=== PATIENT | female | born 1990 | race Caucasian/White ===

== ENCOUNTER 2018-11-14 19:45 | Inpatient (IN) | payer OTHER ==
[2018-11-14] MEDS ORDERED: Methylergonovine 0.2 MG/ML VIAL IM PRN (20:30)
[2018-11-14] MEDS ORDERED: Misoprostol 200 MCG TAB PR PRN (20:30)
[2018-11-14] MEDS ORDERED: Ibuprofen 800 MG TAB PO PRN (20:30)
[2018-11-14] MEDS ORDERED: Butorphanol Tartrate 1 MG/ML VIAL SLOW IVP PRN (20:30)
[2018-11-14] MEDS ORDERED: NS w/ Oxytocin 10 units 500 ML IV SCH ×2 (20:30)
[2018-11-14] MEDS ORDERED: Ondansetron PF 4 MG/2 ML Vial IVP PRN (20:30)
[2018-11-14] MEDS ORDERED: Lidocaine 1% (PF) 30 ML VIAL SC PRN (20:30)
[2018-11-14] MEDS ORDERED: Promethazine HCl 25 MG/ML VIAL IM PRN (20:30)
[2018-11-14] MEDS ORDERED: Zolpidem Tartrate 5 MG TAB PO PRN (20:30)
[2018-11-14] MEDS ORDERED: Diphenoxylate HCl/Atropine Tablet PO PRN ×2 (20:30)
[2018-11-14] MEDS ORDERED: HYDROcodone/Acetaminophen 5/325 mg Tablet PO PRN ×2 (20:30)
[2018-11-14] MEDS ORDERED: hydrALAZINE 20 MG/ML VIAL SLOW IVP PRN (20:30)
[2018-11-14] MEDS ORDERED: NS / Oxytocin 40 units/1000ml 1,000 ML IV PRN (20:30)
[2018-11-14] MEDS ORDERED: Carboprost 250 MCG/ML AMP IM PRN (20:30)
--- NOTE | 2018-11-14 20:34 | PDOC.LDHP ---
Labor and Delivery H&P Chief complaint: scheduled induction HPI: 28 y/o at 39 and 3/7 weeks for term induction of labor Current gestational age (weeks): 39 Due date: 11/18/18 Grav: 1 Para: 0 Current complications: none Abnormal US findings: No Current medications: pre- vitamins Previous surgical history: none Social history: none - Physical Exam Vital signs reviewed and normal: yes General: NAD, resting Heart: RRR Lungs: nonlabored breathing Abdomen: NTTP Extremeties: no edema FHT: category 1 - Assessment L&D Assessment: elective induction at term - Plan Plan: admit to L&D, cervical ripening
[2018-11-14 23:16] VITALS: BMI 27.3
[2018-11-14 23:22] LABS: Hemoglobin 12.4 g/dL (12.0-16.0); Mean Corpuscular HGB CONC 33.9 g/dL (32.0-36.0); Mean Corpuscular Hemoglobin 32.4 pg (27.0-31.0); Mean Corpuscular Volume 95.6 fL (78.0-98.0); Mean Platelet Volume 9.4 fL (7.4-10.4); Platelet Count 212 thou/uL (130-400); RBC Distribution Width 11.9 % (11.5-14.5); Red Blood Cell (RBC) Count 3.84 mill/uL (4.20-5.40); White Blood Cell (WBC) Count 13.4 thou/uL (4.8-10.8)
[2018-11-14] MEDS: Misoprostol 100 MCG TAB VAG SCH ×2 (23:37)
[2018-11-14] MEDS: Lactated Ringer's 1,000 ML IV SCH (23:38)
[2018-11-14 23:57] LABS: HBSAg Index 0.16 S/CO (0-0.99); Hep B Surf Ag Non-Reactive S/CO (NonReactive); Syphilis Antibody Nonreactive (Nonreactive); Syphilis Antibody Index 0.03 S/CO (<1.00 Non-Reactive)
[2018-11-15] MEDS: Misoprostol 100 MCG TAB VAG SCH ×5 (03:13→21:37)
[2018-11-15] MEDS: Lactated Ringer's 1,000 ML IV SCH ×3 (04:05→18:03)
== END 2018-11-15 22:28 | disposition home or self-care (01) | DRG 833 ==
LOC: L&D 21:53
PROVIDERS: ADMIT Obstetrics & Gynecology; ATTEND Obstetrics & Gynecology
DX: O62.1 Secondary uterine inertia (principal); Z3A.39 39 weeks gestation of pregnancy
CPT/HCPCS: 36415; 85027; 86780; 86850; 86900; 86901; 87340

== ENCOUNTER 2018-11-16 06:59 | Inpatient (IN) | payer OTHER ==
[2018-11-16 08:01] VITALS: BMI 27.3
[2018-11-16 08:26] LABS: Amnisure Test RUPTURE DETECTED (No Rupture)
[2018-11-16 08:27] LABS: Amnisure Internal Control QC ACCEPTABLE (ACCEPTABLE)
[2018-11-16] MEDS ORDERED: Butorphanol Tartrate 1 MG/ML VIAL SLOW IVP PRN (09:15)
[2018-11-16] MEDS ORDERED: Ondansetron PF 4 MG/2 ML Vial IVP PRN ×2 (09:15→13:25)
[2018-11-16 09:24] LABS: Hemoglobin 13.3 g/dL (12.0-16.0); Mean Corpuscular HGB CONC 34.7 g/dL (32.0-36.0); Mean Corpuscular Hemoglobin 32.8 pg (27.0-31.0); Mean Corpuscular Volume 94.3 fL (78.0-98.0); Platelet Count 179 thou/uL (130-400); RBC Distribution Width 11.8 % (11.5-14.5); Red Blood Cell (RBC) Count 4.07 mill/uL (4.20-5.40); White Blood Cell (WBC) Count 13.2 thou/uL (4.8-10.8)
[2018-11-16] MEDS: Misoprostol 100 MCG TAB PO SCH ×3 (09:37→23:09)
[2018-11-16 10:02] LABS: Syphilis Antibody Nonreactive (Nonreactive); Syphilis Antibody Index 0.04 S/CO (<1.00 Non-Reactive)
[2018-11-16 10:07] LABS: HBSAg Index 0.19 S/CO (0-0.99); Hep B Surf Ag Non-Reactive S/CO (NonReactive)
[2018-11-16] MEDS ORDERED: Fentanyl 4 mcg/Bup 0.1% Cadd 100 ML ONE ×2 (12:37→19:40)
[2018-11-16] MEDS ORDERED: Lidocaine 1.5%/Epinephrine 1:200,000 5 ML AMPUL IJ ONE (12:48)
[2018-11-16] MEDS ORDERED: Acetaminophen 325 MG TAB PO PRN (13:25)
[2018-11-16] MEDS ORDERED: diphenhydrAMINE 50 MG/ML VIAL IVP PRN (13:25)
[2018-11-16] MEDS ORDERED: Lactated Ringer's 500 ML IV PRN (13:25)
[2018-11-16] MEDS ORDERED: Naloxone HCl 0.4 mg/ml Vial IVP PRN ×2 (13:25)
[2018-11-16] MEDS ORDERED: Promethazine HCl 25 MG/ML VIAL IM PRN (13:25)
[2018-11-16] MEDS ORDERED: ePHEDrine/0.9% NaCl/PF SYRINGE 50 mg/10 ml SLOW IVP PRN (13:25)
[2018-11-16] MEDS ORDERED: Fentanyl 4 mcg/Bupivacaine 0.1% Cassette 100 ML EPIDURAL SCH (13:30)
[2018-11-16] MEDS ORDERED: Communication Order-Pharmacy FS SCH (13:30)
[2018-11-16] MEDS ORDERED: NS w/ Oxytocin 10 units 500 ML IV SCH (14:30)
[2018-11-16] MEDS ORDERED: Oxytocin 10 UNITS/ML VIAL ONE (14:32)
[2018-11-16] MEDS ORDERED: NS w/ Oxytocin 10 units 500 ML ONE (14:33)
[2018-11-16] MEDS ORDERED: Bupivacaine 0.25% HCL 30 ML VIAL ONE (22:22)
[2018-11-17] MEDS: Misoprostol 100 MCG TAB PO SCH ×2 (01:49→13:23)
[2018-11-17] MEDS ORDERED: PHENYLEPHRINE-NS 100 MCG/ML 10 ML SYRINGE ONE (02:01)
[2018-11-17] MEDS ORDERED: diphenhydrAMINE 50 MG/ML VIAL ONE ×2 (02:01→08:50)
[2018-11-17] MEDS ORDERED: Lidocaine 2% 10 ML INJ ONE (02:01)
[2018-11-17] MEDS ORDERED: Ketorolac Tromethamine 30 MG/ML VIAL ONE ×2 (02:01→08:50)
[2018-11-17] MEDS ORDERED: Ondansetron PF 4 MG/2 ML Vial ONE ×3 (02:01→08:50)
[2018-11-17] MEDS ORDERED: Oxytocin 10 UNITS/ML VIAL ONE (02:01)
[2018-11-17] MEDS ORDERED: Dexamethasone 4 mg/ml Vial ONE (02:01)
[2018-11-17] MEDS ORDERED: Succinylcholine Chloride 20 MG/ML 10 ml SYRINGE FS ONE (02:01)
[2018-11-17] MEDS ORDERED: PROPOFOL 0 ML ONE (02:01)
[2018-11-17] MEDS ORDERED: MORPHINE 5 MG/10 ML PF VIAL ONE (02:20)
[2018-11-17] MEDS ORDERED: Carboprost 250 MCG/ML AMP ONE (02:29)
[2018-11-17] MEDS ORDERED: Methylergonovine 0.2 MG/ML VIAL ONE (02:30)
[2018-11-17] MEDS ORDERED: Bupivacaine/Epinephrine 0.5% 10 ML VIAL ONE (02:37)
[2018-11-17] MEDS ORDERED: Promethazine HCl 25 MG/ML VIAL IM PRN ×2 (02:49→10:18)
[2018-11-17] MEDS ORDERED: Ondansetron PF 4 MG/2 ML Vial IVP PRN ×2 (02:49→10:18)
[2018-11-17] MEDS ORDERED: L&D-Morphine 4 MG/ML VIAL SLOW IVP PRN (02:49)
[2018-11-17] MEDS ORDERED: HYDROmorphone 2 MG/ML VIAL SLOW IVP PRN (02:49)
[2018-11-17] MEDS ORDERED: Naloxone HCl 0.4 mg/ml Vial IV PRN (02:49)
[2018-11-17] MEDS ORDERED: diphenhydrAMINE 50 MG/ML VIAL IVP PRN (02:49)
[2018-11-17] MEDS ORDERED: Ondansetron HCl/PF 4 MG/2 ML Vial IVP PRN (02:49)
[2018-11-17] MEDS ORDERED: Naloxone HCl 0.4 mg/ml Vial IVP PRN ×2 (02:49)
[2018-11-17] MEDS ORDERED: Promethazine HCl 25 MG SUPP PR PRN (02:49)
[2018-11-17] MEDS ORDERED: Meperidine HCl/PF 25 MG/ML VIAL SLOW IVP PRN (02:49)
[2018-11-17] MEDS ORDERED: Communication Order-Pharmacy FS SCH (03:00)
[2018-11-17] MEDS ORDERED: CEFAZOLIN 2 GM in Premix Bag 1 BAG IVPB SCH (04:00)
[2018-11-17] MEDS ORDERED: CEFAZOLIN 1 GM VIAL IM SCH (04:00)
--- NOTE | 2018-11-17 05:19 | OP ---
DATE OF PROCEDURE: 11/17/2018 [facility] [place] [facility] PREOPERATIVE DIAGNOSIS: Intrauterine at 39 weeks and five days with spontaneous onset of labor and spontaneous rupture of membranes with arrest of dilatation along with non-reassuring status. POSTOPERATIVE DIAGNOSIS: Intrauterine at 39 weeks and five days with spontaneous onset of labor and spontaneous rupture of membranes with arrest of dilatation along with non-reassuring status. PROCEDURE PERFORMED: Primary low transverse section using Pfannenstiel skin incision. FINDINGS: Viable female infant weighing 3146 g or 6 pounds 15 ounces; Apgars of one, seven, and nine. QUANTITATIVE BLOOD LOSS: 700 mL. COMPLICATIONS: None. DETAILS OF THE PROCEDURE: The patient was consented and taken back to the operating room where spinal anesthesia was found to be adequate. She was then prepped and draped in the normal sterile fashion. A timeout was performed by the entire operative team. The incision was then marked with a marking pen tested using sharp pickups. An incision was then made with a scalpel. The incision was carried through the adipose tissue down to the underlying rectus fascia using both sharp dissection as well as cautery. Once the fascia was identified, it was incised in the midline and then the fascial incision was carried through in both lateral directions using sharp as well as cautery dissection techniques. Next, the superior aspect of the rectus fascia was grasped with 2 Gurvinder clamps, which was tented up and the rectus muscles were dissected off using blunt dissection as well as cautery dissection. Similarly, the inferior aspect of the fascial incision was grasped with 2 Gurvinder clamps, tented up and the rectus muscles were dissected off bluntly as well as sharply. Next, the rectus muscles were in the midline and the peritoneum identified. The peritoneum was then carefully grasped with 2 hemostats and entered sharply. The peritoneal incision was extended superiorly and inferiorly and bladder blade was placed in the lower abdomen. At this point, the uterus was identified and the bladder flap was then developed using pickups with teeth as well as Metzenbaum scissors in both lateral directions. The bladder flap was then dissected downwards using the bale tie machine operator's finger as well as Metzenbaum scissors. The bladder blade was replaced. The lower uterine segment was then identified and entered sharply using a clean scalpel. The uterine incision was then dissected downwards until thin layer of muscle remained and this was entered bluntly using a hemostat to avoid any injury to the baby. The uterine incision was then stretched using two fingers in both lateral directions. An amniotomy was performed artificially using a hemostat and the baby was delivered using fundal pressure in a gentle fashion. Once out, the baby's mouth and nose were bulb suctioned, cord clamped and cut, and the baby was handed to waiting attendants. Next, the uterus was exteriorized, cleared of all clots and debris and the uterine incision was repaired with #1 Monocryl in a running locking fashion. A 2nd suture of the same type was used to obtain complete hemostasis at the uterine incision. The bladder flap was reapproximated using 3-0 Monocryl. Next, patient's left and right adnexa were inspected and appeared to be within normal limits. The posterior cul-de-sac was blotted dry and hemostasis assured. One more look at the uterine incision demonstrated hemostasis. Next, the uterus was replaced back within the abdomen. The peritoneum was reapproximated using 2-0 Monocryl without difficulty. The rectus muscles were then allowed to come back together and 0 chromic was used to aid in reapproximation of the muscle as necessary. The rectus fascia was then reapproximated in a running fashion using 0 Vicryl suture. The adipose tissue was then examined and appeared to be well approximated without any obvious separations. Finally, the skin was reapproximated with 3-0 Monocryl on a Galindo needle without difficulty and Dermabond adhesive was applied to the skin. Once the glue was dry, the drapes were removed and the patient was transferred to an ambulatory bed where she was taken to recovery awake and in stable condition. Sponge, lap, and needle counts were correct x3. Job ID: [id number]
[2018-11-17] MEDS ORDERED: Dexamethasone 20 MG/5 ML VIAL ONE (08:50)
[2018-11-17] MEDS ORDERED: hydrALAZINE 20 MG/ML VIAL SLOW IVP PRN (10:18)
[2018-11-17] MEDS ORDERED: HYDROcodone/Acetaminophen 5/325 mg Tablet PO PRN ×2 (10:18)
[2018-11-17] MEDS ORDERED: Simethicone Chewable 80 MG TAB PO PRN (10:18)
[2018-11-17] MEDS ORDERED: diphenhydrAMINE 25 MG CAP PO PRN (10:18)
[2018-11-17] MEDS ORDERED: Misoprostol 200 MCG TAB PR PRN (10:18)
[2018-11-17] MEDS ORDERED: Lanolin Ointment 7 GM TUBE TOP PRN (10:18)
[2018-11-17] MEDS ORDERED: Methylergonovine 0.2 MG/ML VIAL IM PRN (10:18)
[2018-11-17] MEDS ORDERED: Zolpidem Tartrate 5 MG TAB PO PRN (10:18)
[2018-11-17] MEDS ORDERED: NS / Oxytocin 40 units/1000ml 1,000 ML IV SCH (10:18)
[2018-11-17] MEDS ORDERED: Bisacodyl 10 MG SUPP PR PRN (10:18)
[2018-11-17] MEDS: Ketorolac Tromethamine 30 MG/ML VIAL IVP SCH ×3 (11:00→21:30)
[2018-11-17] MEDS: Ibuprofen 800 MG TAB PO SCH ×2 (13:16→22:10)
[2018-11-17] MEDS: CEFAZOLIN 2 GM in Premix Bag 1 BAG IVPB SCH ×2 (13:20→20:35)
[2018-11-17] MEDS ORDERED: Sodium Chloride 0.9% 10 ML ONE (20:16)
[2018-11-17] MEDS: Ferrous Sulfate 325 MG TAB PO SCH (21:28)
[2018-11-17] MEDS: Docusate Calcium (SURFAK) 240 MG CAP PO SCH (21:29)
[2018-11-18] MEDS ORDERED: Sodium Chloride 0.9% 10 ML ONE (03:25)
[2018-11-18] MEDS: CEFAZOLIN 2 GM in Premix Bag 1 BAG IVPB SCH ×2 (03:30→14:03)
[2018-11-18] MEDS: Ketorolac Tromethamine 30 MG/ML VIAL IVP SCH (03:30)
[2018-11-18] MEDS: Ibuprofen 800 MG TAB PO SCH ×3 (03:53→22:43)
[2018-11-18 05:32] LABS: Hemoglobin 9.8 g/dL (12.0-16.0); Mean Corpuscular HGB CONC 34.5 g/dL (32.0-36.0); Mean Corpuscular Volume 95.4 fL (78.0-98.0); Mean Platelet Volume 9.5 fL (7.4-10.4); Platelet Count 169 thou/uL (130-400); RBC Distribution Width 11.6 % (11.5-14.5); Red Blood Cell (RBC) Count 2.98 mill/uL (4.20-5.40); White Blood Cell (WBC) Count 19.3 thou/uL (4.8-10.8)
[2018-11-18] MEDS: Ferrous Sulfate 325 MG TAB PO SCH ×2 (09:10→22:42)
[2018-11-18] MEDS: Prenatal Vitamin 1 TAB PO SCH (09:10)
[2018-11-18] MEDS: Docusate Calcium (SURFAK) 240 MG CAP PO SCH ×2 (09:10→22:43)
[2018-11-18] MEDS ORDERED: Measles/Mumps/Rubella 10 MCG/0.5 ML VIAL SC ONE (10:18)
[2018-11-18] MEDS ORDERED: Varicella virus, LIVE 0.5 ML VIAL SC ONE (10:18)
[2018-11-18] MEDS ORDERED: Adacel (T-DAP) 0.5 ML SYRINGE IM ONE (10:18)
--- NOTE | 2018-11-18 12:59 | PDOC.PP ---
Post Progress Note Post Day #: 1 PO intake tolerated: yes Flatus: yes Ambulation: yes Vital Signs (12 hours) Temp Pulse Resp BP BP Pulse Ox 11/18/18 12:47 98.8 F 96 16 107/69 11/18/18 08:00 98.1 F 92 18 114/56 L 99 11/18/18 03:55 98.0 F 89 18 107/58 L 11/18/18 01:00 97.7 F 97 18 121/54 L Weight Weight 140 lb - Physical Examination General: NAD Cardiovascular: no m/r/g, RRR Respiratory: clear to auscultation bilaterally, non-labored breathing Abdominal: + bowel sounds, lochia, no distention, appropriately TTP Extremities: negative homans (B) Skin: CS incision dry & intact, no rash Neurological: no gross focal deficits Psychiatric: A&Ox3, normal affect Result Diagrams: 11/18/18 05:03 Additional Labs: Post Labs Blood Type O POSITIVE 11/16/18 09:08 Hep Bs Antigen Non-Reactive S/CO (NonReactive) 11/16/18 09:08
--- NOTE | 2018-11-18 13:01 | PDOC.LDHP ---
Labor and Delivery H&P HPI: 28 y/o at 39 and 5/7 weeks with EDC of 11/18/18 presents in labor with SROM. Current gestational age (weeks): 39 Due date: 11/18/18 Grav: 1 Para: 0 Current complications: none Abnormal US findings: No Current medications: pre-dane vitamins Allergies/Adverse Reactions: Allergies Allergy/AdvReac Type Severity Reaction Status Date / Time No Known Allergies Allergy Verified 11/14/18 23:17 Social history: none - Physical Exam Vital signs reviewed and normal: yes General: NAD, resting, breathing through contractions Heart: RRR Lungs: CTAB Abdomen: gravid Extremeties: no edema FHT: category 1 - Assessment L&D Assessment: term rupture in membranes - Plan Plan: admit to L&D, labor augmentation if indicated
[2018-11-19] MEDS: Ibuprofen 800 MG TAB PO SCH (05:36)
[2018-11-19] MEDS: CEFAZOLIN 2 GM in Premix Bag 1 BAG IVPB SCH (06:53)
[2018-11-19 08:25] VITALS: BP 118/72; TEMP 97.8
[2018-11-19] MEDS: Ferrous Sulfate 325 MG TAB PO SCH (09:39)
[2018-11-19] MEDS: Prenatal Vitamin 1 TAB PO SCH (09:39)
[2018-11-19] MEDS: Docusate Calcium (SURFAK) 240 MG CAP PO SCH (09:39)
--- NOTE | 2018-11-20 01:05 | DIS ---
DATE OF ADMISSION: 11/16/2018 DATE OF DISCHARGE: 11/19/2018 ADMITTING DIAGNOSES: 1. Intrauterine at 39 weeks. 2. Spontaneous rupture of membranes. DISCHARGE DIAGNOSES: 1. Intrauterine at 39 weeks. 2. Spontaneous rupture of membranes. 3. Arrest of labor. PROCEDURE: Primary lower transverse section. CONSULTATIONS: None. HOSPITAL COURSE: The patient is a 28-year-old, G1, now P1 female who presented to Labor and Delivery with spontaneous rupture of membranes at 39-weeks gestation. She was admitted for induction of labor resulting in arrest of labor and a primary . For complete details, please refer to Dr. Price's operative note. The patient's postoperative course; given the protracted labor, the patient was placed on antibiotics for a total of 3 doses. Otherwise, her postoperative course has been uncomplicated. Today is postoperative day 2. The patient is ambulating, tolerating p.o., voiding on her own, having decreased lochia, and good pain control. PHYSICAL EXAMINATION: VITAL SIGNS: This morning, blood pressure is 118/72, temperature is 97.8, pulse of 91, respiratory rate of 20, saturating 96% on room air. GENERAL: She appears to be in no acute distress. She is alert and oriented, cooperative and pleasant to interact with. ABDOMEN: Appropriately soft and appropriately tender. Incision is clean, dry, and intact. Fundus is firm. EXTREMITIES: Nontender with 1+ symmetrical edema. DISPOSITION: The patient is being discharged to home. DISCHARGE INSTRUCTIONS: She has been given instructions to follow up with Dr. Price in 2 weeks for an incision check or sooner if she experiences fever, increasing pain or bleeding or notices redness or drainage from her incision site. The patient has also been counseled to restrict driving for 2 weeks and limit her lifting to about 15 pounds for the next 4 to 6 weeks. The patient is being discharged home with pain medications prescribed by Dr. Price, which include Tylenol 3 and ibuprofen. Job ID: [id number]
== END 2018-11-19 11:05 | disposition home or self-care (01) | DRG 788 ==
LOC: L&D/OP 06:59 → L&D 09:07 → L&D-LIB 11-17 05:40 → 3SW 11-17 11:59
PROVIDERS: ADMIT Obstetrics & Gynecology; ATTEND Obstetrics & Gynecology
PROC: 10D00Z1 Extraction of Products of Conception, Low, Open Approach (ICD-10-PCS; principal; 2018-11-17)
DX: O76 Abnormality in fetal heart rate and rhythm complicating labor and delivery (principal); Z3A.39 39 weeks gestation of pregnancy; Z37.0 Single live birth; O62.1 Secondary uterine inertia
CPT/HCPCS: 36415; 84112; 85027; 86780; 86850; 86900; 86901; 87340; J0690; J1100; J1200; J1885; J2001; J2210; J2274; J2405; J2590; J2704; J3490; S0020